=== PATIENT | female | born 1985 | race Two or more races ===

== ENCOUNTER → 2023-12-18 | Outpatient (CLI) | payer OTHER, SELFPAY ==
[2023-12-18 18:04] LABS: Follicle Stimulating Hormone 3.46 mIU/mL (See Note)
[2023-12-30 13:33] LABS: DHEA Sulfate* 155 mcg/dL (23-266); Estrogen, Total, Serum* 224 pg/mL; Luteinizing Hormone* 6.7 mIU/mL; Progesterone,LC/MS* 8.5 ng/mL; Testosterone, Total, Dialysis 14 ng/dL (2-45)
== END | disposition home or self-care (01) ==
LOC: COPL 17:10
PROVIDERS: PCP Family Medicine; Referring Provider Nurse Practitioner Family; Visit Provider Nurse Practitioner Family
DX: R53.83 Other fatigue (principal); N95.1 Menopausal and female climacteric states
CPT/HCPCS: 36415; 82627; 82672; 83001; 83002; 84144; 84402; 84403

== ENCOUNTER → 2024-02-25 | Outpatient (CLI) | payer OTHER, SELFPAY ==
[2024-02-25 08:34] LABS: Basophils # (Auto) 0.1 Thou/mm3 (0.0-0.2); Basophils % (Auto) 1 % (0-2.5); Eosinophils # (Auto) 0.4 Thou/mm3 (0.0-0.5); Eosinophils % (Auto) 8 % (0-10); Hematocrit 39.2 % (36.0-46.0); Hemoglobin 12.7 g/dL (12.0-16.0); Immature Granulocytes % (Auto) 0 % (0-0); Immature Granulocytes Auto 0.02 Thou/mm3 (0.00-0.00); Lymphocytes # (Auto) 1.9 Thou/mm3 (1.0-4.8); Lymphocytes % (Auto) 33 % (10-50); Mean Corpuscular HGB Conc 32.4 g/dl (31.0-37.0); Mean Corpuscular Hemoglobin 29.1 pg (25.0-35.0); Mean Corpuscular Volume 90 fL (80-100); Monocytes # (Auto) 0.4 Thou/mm3 (0.0-0.8); Monocytes % (Auto) 7 % (0-12); Neutrophils # (Auto) 2.9 Thou/mm3 (1.8-7.7); Neutrophils % (Auto) 51 % (37-80); Nucleated Red Blood Cell % 0 /100 WBC (0); Platelet Count 302 Thou/mm3 (140-440); RDW Standard Deviation 41.3 fL (36.4-46.3); Red Blood Count 4.37 Miln/mm3 (4.00-5.20); White Blood Count 5.7 Thou/mm3 (3.6-11.0)
[2024-02-25 08:44] LABS: Glucose Estimated Average 137 mg/dL (80-131); Hemoglobin A1C 6.4 % Hgb (4.8-6.0)
[2024-02-25 08:54] LABS: Alanine Aminotransferase 13 U/L (10-49); Anion Gap 7 (7-16); Aspartate Amino Transferase 13 U/L (0-34); BUN/Creatinine Ratio 20 Ratio (12-20); Blood Urea Nitrogen 14 mg/dL (9-23); Carbon Dioxide 27.3 mMol/L (20.0-31.0); Chloride 106 mMol/L (98-107); Cholesterol 184 mg/dL (132-200); Creatinine (Component) 0.7 mg/dL (0.6-1.3); Free T4 (Free Thyroxine) 1.16 ng/dL (0.89-1.76); Glucose 134 mg/dL (74-106); HDL Cholesterol 62 mg/dL (40-60); LDL Cholesterol,Calculated 112 mg/dL (0-130); Osmolality,Calculated 281 (275-295); Potassium 4.6 mMol/L (3.4-5.1); Sodium 140 mMol/L (136-145); Thyroid Stimulating Hormone 1.38 uIU/mL (0.55-4.78); Triglycerides 48 mg/dL (30-150); eGFR > 60 See Note
[2024-02-25 09:01] LABS: Creatinine MALB Rnd Ur 136 mg/dL (30-125); Microalbumin, Random Urine < 3 mg/L (0-300)
== END | disposition home or self-care (01) ==
PROVIDERS: PCP Family Medicine; Referring Provider Internal Medicine; Visit Provider Internal Medicine
DX: E10.65 Type 1 diabetes mellitus with hyperglycemia (principal)
CPT/HCPCS: 36415; 80048; 80061; 82043; 82570; 83036; 84439; 84443; 84450; 84460; 85025

== ENCOUNTER → 2024-05-16 | Outpatient (CLI) | payer OTHER, SELFPAY ==
[2024-05-16 07:24] LABS: Misc Send Out* See Sep Rpt
[2024-05-16 14:46] LABS: Cocci Serology, IgM Negative (Negative)
[2024-05-17 11:25] LABS: Cocci Serology, IgG Negative (Negative)
[2024-05-18 05:04] LABS: A. alternata (M6) IgE 2.94 kU/L; A. fumigatus (M3) Class 0; A. fumigatus (M3) IgE <0.10 kU/L; Alder (T2) Class 0; Alder (T2) IgE <0.10 kU/L; Bermuda Grass (G2) Class 0; Bermuda Grass (G2) IgE <0.10 kU/L; Birch (T3) Class 0; Birch (T3) IgE <0.10 kU/L; C. herbarum (M2) Class 0; C. herbarum (M2) IgE <0.10 kU/L; Cat Dander (e1) Class 0; Cat Dander (e1) IgE <0.10 kU/L; Cockroach (I6) IgE <0.10 kU/L; Common Pigweed (W14) IgE <0.10 kU/L; Common Ragweed (W1) Class 0; Common Ragweed (W1) IgE <0.10 kU/L; D. farinae (D2) Class 0/1; D. farinae (D2) IgE 0.19 kU/L; D. pteronyssinus (D1) Class 0/1; Dog Dander (E5) IgE <0.10 kU/L; Elm (T8) IgE <0.10 kU/L; Mountain Cedar (T6) Class 0; Mountain Cedar (T6) IgE <0.10 kU/L; Mouse Ur Prot (E72) IgE <0.10 kU/L; Mugwort (W6) Class 0; Mugwort (W6) IgE <0.10 kU/L; Oak White (T7) Class 0; Oak White (T7) IgE <0.10 kU/L; Olive Tree (T9) Class 0; Olive Tree (T9) IgE <0.10 kU/L; P. notatum (M1) Class 0; P. notatum (M1) IgE <0.10 kU/L; Russian Thistle (W11) Class 0; Russian Thistle (W11) IgE <0.10 kU/L; Sycamore (T11) IgE <0.10 kU/L; Timothy Grass (G6) IgE 0.11 kU/L; White Mulberry (T70) IgE <0.10 kU/L
[2024-05-18 06:16] LABS: Cockroach (I6) Class 0; Dog Dander (E5) Class 0; IgE, Total, Serum 36 kU/L (114 OR LESS); Sycamore (T11) Class 0; White Mulberry (T70) Class 0
[2024-05-18 06:17] LABS: A. alternata (M6) Class 2; Common Pigweed (W14) Class 0; Elm (T8) Class 0; IgE, Serum* 34 kU/L (114 OR LESS); Mouse Ur Prot (E72) Class 0; Timothy Grass (G6) Class 0/1
== END | disposition home or self-care (01) ==
PROVIDERS: PCP Nurse Practitioner Family; Referring Provider Nurse Practitioner Family; Visit Provider Nurse Practitioner Family
DX: L50.9 Urticaria, unspecified (principal); R21 Rash and other nonspecific skin eruption; R06.00 Dyspnea, unspecified; B38.89 Other forms of coccidioidomycosis; I83.90 Asymptomatic varicose veins of unspecified lower extremity
CPT/HCPCS: 36415; 82785; 86003; 86331; 86635